=== PATIENT | female | born 1990 | race Hispanic/Latino ===

== ENCOUNTER 2018-06-28 17:56 | Observation (INO) | payer BC ==
[~2018-06-28] VITALS: Ht 160 cm; Wt 75.6 kg
--- NOTE | 2018-06-28 18:58 | Diagnostic Imaging Report ---
EXAMINATION: CXR 2 VIEW - HOPD INDICATION: Chest pressure, right arm numbness COMPARISON: None FINDINGS: PA and lateral views TUBES and LINES: None. LUNGS: Lungs are well inflated. Lungs are clear. There is no evidence of pneumonia or pulmonary edema. PLEURA: No pleural effusion or pneumothorax. HEART AND MEDIASTINUM: Curvilinear calcification along the left heart border may reflect pericardial calcification. The cardiomediastinal silhouette is otherwise unremarkable. BONES AND SOFT TISSUES: No acute osseous lesion. Median sternotomy wires. Soft tissues are unremarkable. UPPER ABDOMEN: No free air under the diaphragm. IMPRESSION: No acute thoracic abnormality. Signed by: DR. Frank Rmaey MD on 06/28/2018 6:54 PM
[2018-06-28] MEDS ORDERED: ONDANSETRON HCL INJ 2 MG/ML VIAL IV PRN (19:15)
[2018-06-28] MEDS ORDERED: MORPHINE SULFATE 2 MG/ML SYR IV PRN (19:15)
[2018-06-28] MEDS ORDERED: PROMETHAZINE 12.5MG/ NACL 0.9% 12.5 MG/50 ML BAG IV PRN (19:15)
[2018-06-28] MEDS ORDERED: ASPIRIN 81 MG CHEW TAB PO ONE (19:15)
[2018-06-28] MEDS ORDERED: ENALAPRILAT IV INJ 1.25 MG/ML VIAL IV PRN (19:15)
[2018-06-28] MEDS ORDERED: SODIUM CHLORIDE FLUSH 10 ML SYR INJ PRN (19:15)
[2018-06-28] MEDS ORDERED: HYDROCODONE/APAP 7.5MG-325MG 1 EA TAB PO PRN (19:15)
[2018-06-28] MEDS ORDERED: ZOLPIDEM TARTRATE 5 MG TAB PO PRN (19:15)
[2018-06-28] MEDS ORDERED: DIPHENHYDRAMINE HCL 25 MG CAP PO PRN (19:15)
[2018-06-28] MEDS ORDERED: ACETAMINOPHEN 325 MG TAB PO PRN (19:15)
--- OUTSIDE RECORDS SUMMARY | 2018-06-28 21:56 | XMS REPORT ---
Author [facility] Address Unknown Phone Unavailable Care Team Providers Care Bio Medical Technician Name Role Phone Ramana BYERS Unavailable Unavailable Problems This patient has no known problems. Allergies, Adverse Reactions, Alerts This patient has no known allergies or adverse reactions. Medications This patient has no known medications. Results Test Description Test Time Test Comments Text Results Atomic Results Result Comments CXR 2 VIEW - HOPD 2018-06-28 18:51:00 [place] [address] Patient Name: JASMIN SIMPSON MR #: [id number] : 1990 Age/Sex: 28/F Req #: [id number] Adm Physician: Ordered by: FRANK BYERS MD Report #: [id number] [facility] Room[facility]Bed: Procedure: [id number] HOPD/CXR 2 VIEW - HOPD Exam Date: 06/28/18 Exam Time: 1850 REPORT STATUS: Signed EXAMINATION: CXR 2 VIEW - HOPD INDICATION: Chest pressure, right arm numbness COMPARISON: None FINDINGS: PA and lateral views TUBES and LINES: None. LUNGS: Lungs are well inflated. Lungs are clear. There is no evidence of pneumonia or pulmonary edema. PLEURA: No pleural effusion or pneumothorax. HEART AND MEDIASTINUM: Curvilinear calcification along the left heart border may reflect pericardial calcification. The cardiomediastinal silhouette is otherwise unremarkable. BONES AND SOFT TISSUES: No acute osseous lesion. Median sternotomy wires. Soft tissues are unremarkable. UPPER ABDOMEN: No free air under the diaphragm. IMPRESSION: No acute thoracic abnormality. Signed by: DR. Frank Mcclure MD on 06/28/2018 6:54 PM Dictated By: FRANK MCCLURE MD 53 Transcribed By: LEANNA on 06/28/181853 COPY TO: FRANK BYERS MD
[2018-06-28 23:00] VITALS: BP 105/57
[2018-06-29] VITALS (8 sets, daily range): BP systolic 90–106; BP diastolic 54–66
[2018-06-29 03:42] LABS: CHOL/HDL RATIO 4.5 (3.0-3.6)
[2018-06-29 03:43] LABS: CREATINE KINASE MB 0.6 ng/mL (0-5.0)
[2018-06-29] MEDS: FAMOTIDINE 20 MG TAB PO SCH ×2 (08:49→16:36)
[2018-06-29 11:09] LABS: CREATINE KINASE MB 0.6 ng/mL (0-5.0)
[2018-06-30] VITALS: BP 100/55
--- NOTE | 2018-06-30 00:56 | Consultation ---
DATE OF CONSULTATION: June 29, 2018 CARDIOLOGY CONSULTATION REQUESTING PHYSICIAN: Dr. Lennon. REASON FOR CONSULTATION: Chest pain. HISTORY OF PRESENT ILLNESS: This is a 28-year-old woman with history of tetralogy of Fallot status post surgical repair as well as ASD closure at [facility] and hyperlipidemia who presents with complaints of chest pressure. The patient indicates she began feeling chest pressure Zel[place] evening. She describes it as 4/10 in severity that woke her up from sleep. It lasted for approximately 5-10 minutes and was not associated with any shortness of breath, nausea, or diaphoresis. The pain did not radiate, and she did not notice any aggravating or alleviating factors. She was pain free until yesterday when she had recurrence of the chest pain. At this time, the pain radiated to her right arm. She therefore presented to the ER for further evaluation. She denies any edema, orthopnea, or PND. She is followed by a fitness manager and indicates she has known right ventricular dilation as well as pulmonary regurgitation. REVIEW OF SYSTEMS: Negative except as per HPI. PAST MEDICAL HISTORY 1. Tetralogy of Fallot, status post repair in 1991. 2. ASD repair. 3. Hyperlipidemia. PAST SURGICAL HISTORY: As above. ALLERGIES: NO KNOWN DRUG ALLERGIES. MEDICATIONS: Please see EMR. SOCIAL HISTORY: Denies tobacco or illicit drugs, does drink alcohol occasionally. FAMILY HISTORY: Noncontributory. PHYSICAL EXAM VITAL SIGNS: Temperature 96.7 degrees, pulse 66, respiratory rate 20, blood pressure 91/54, and oxygen saturation 98% on room air. GENERAL: Well-developed, well-nourished woman, in no acute distress, awake and alert. HEENT: Normocephalic, atraumatic. Pupils are equal. No scleral icterus. NECK: Supple. No thyromegaly or cervical lymphadenopathy. LUNGS: Clear to auscultation bilaterally. No wheezes or crackles. CARDIOVASCULAR: Normal rate. Regular rhythm. A 1/6 systolic murmur is appreciated. ABDOMEN: Soft and nontender. EXTREMITIES: No edema. NEUROLOGICAL: Nonfocal exam. Alert and oriented. LABORATORY AND DIAGNOSTIC DATA: Troponin 0.013. Cholesterol 224, triglycerides 146, LDL 145, and HDL 50. EKG, normal sinus rhythm with right bundle branch block. Outside labs reviewed. IMPRESSION 1. Tetralogy of Fallot, status post repair in 1991. 2. Atrial septal defect closure. 3. Severe pulmonary regurgitation. 4. Severe right ventricular dilation with impaired systolic function. RECOMMENDATIONS: The patient has been ruled out for myocardial infarction with serial cardiac biomarkers. Left ventricular function is preserved; however, patient is noted to have severe pulmonic regurgitation with right ventricular dilation. As patient is currently symptom free, I recommend patient follow up with congenital heart disease clinic at [facility] for further evaluation. Recommend initiation of atorvastatin given the patient's significantly elevated lipid panel. Continue home cardiac medications, otherwise. Thank you for this consult. We will continue to follow. Job#: [id number] MITZY
[2018-06-30 03:15] VITALS: BP 92/50
[2018-06-30] MEDS: FAMOTIDINE 20 MG TAB PO SCH (07:30)
[2018-06-30 08:22] VITALS: BP 92/50
[2018-06-30 08:37] VITALS: BP 104/61
[2018-06-30] MEDS ORDERED: ATORVASTATIN 20 MG TAB PO SCH (21:00)
--- NOTE | 2018-09-08 19:26 | Discharge Summary ---
DISCHARGE DIAGNOSES 1. Chest pain rule out myocardial infarction. 2. Hypertension. 3. History of tetralogy of Fallot repair. HISTORY OF PRESENT ILLNESS AND HOSPITAL COURSE: Patient is a 28-year-old lady with a history of tetralogy of Fallot repair who had some vague chest pain. She was brought in. She ruled out for CA. She was seen by cardiology. She was found to have some pulmonary stenosis, but patient was feeling good. At the time of discharge, she wanted to follow up as an outpatient with her cardiology and so she was cleared by cardiology. We were able to let her go home. Please see hospital chart for full details. Job#: [id number] FELIX
== END 2018-06-30 11:21 | disposition home or self-care (01) ==
LOC: FSED 17:56 → ERHOLD 19:13 → IMCU 22:55
PROVIDERS: ADMIT Internal Medicine; ATTEND Internal Medicine
DX: R07.89 Other chest pain (principal); E78.5 Hyperlipidemia, unspecified; I37.1 Nonrheumatic pulmonary valve insufficiency; I51.7 Cardiomegaly; Z87.74 Personal history of (corrected) congenital malformations of heart and circulatory system
CPT/HCPCS: 36415; 71046; 80053; 80061; 81003; 81025; 82550; 82553 ×2; 84484 ×2; 85025; 85379; 93005; 93306; 99284; G0378 ×3; J2270; J2405; J2550